=== PATIENT | female | born 1960 | race Two or more races ===

== ENCOUNTER 2022-09-29 09:02 | Inpatient (IN) | payer OTHER ==
[~2022-09-29] VITALS: Ht 167.6 cm; Wt 81.5 kg
[2022-09-29] MEDS ORDERED: SODIUM CHLORIDE 0.9% 1,000 ML IV ONE (09:30)
[2022-09-29 09:57] LABS: Albumin 3.6 g/dL (3.4-5.0); Calcium 8.7 mg/dL (8.5-10.1); Potassium 3.4 mmol/L (3.5-5.1)
[2022-09-29 10:00] LABS: BUN/Creatinine Ratio 17.9 (10.0-20.0); Bilirubin, Total 0.4 mg/dL (0.2-1.0); Total Protein 6.9 g/dL (6.4-8.2)
[2022-09-29 10:25] LABS: Basophils # (auto) 0 10 ^3/uL (0-0.2); Basophils % (auto) 0.8 % (0.0-2.0); Eosinophils # (auto) 0.2 10 ^3/uL (0-0.8); Eosinophils % (auto) 3.1 % (0.0-7.0); Lymphocytes # (auto) 0.8 10 ^3/uL (0.4-5.4); Lymphocytes % (auto) 12.5 % (10.0-50.0); Mean Corpuscular Hemoglobin 30.9 pg (28.0-32.0); Mean Corpuscular Hgb Conc. 33.4 g/dL (32.0-36.0); Mean Corpuscular Volume 92.6 fL (80.0-100.0); Monocytes # (auto) 0.6 10 ^3/uL (0-1.3); Monocytes % (auto) 9.7 % (0.0-12.0); Neutrophils # (auto) 4.5 10 ^3/uL (1.6-8.6); Neutrophils % (auto) 73.9 % (37.0-80.0); Nucleated Red Blood Cells % 0.1 %; Red Cell Distribution Width 14.4 % (11.8-14.3); White Blood Cell 6.1 10^3/uL (4.4-10.8)
[2022-09-29 11:00] VITALS: PULSE 75; RESP 15; O2SAT 99
[2022-09-29] MEDS ORDERED: POTASSIUM EFFERVESENT TAB 25 MEQ PO ONE (11:00)
[2022-09-29 11:10] LABS: Hematocrit 35.2 % (36.0-46.0); Hemoglobin 11.7 g/dL (12.2-16.2)
[2022-09-29 12:57] LABS: Urine Bacteria NONE SEEN /hpf (None Seen); Urine Blood Negative /uL (Negative); Urine Clarity Clear (Clear); Urine Color Yellow (Yellow); Urine Protein, UAD Negative (Negative); Urine Specific Gravity 1.016 (1.001-1.035); Urine Urobilinogen Normal (Negative); Urine WBC <1 /hpf (0 - 5); Urine pH 6.5 (5.0-8.0)
[2022-09-29] MEDS ORDERED: ACETAMINOPHEN 325 MG TAB PO PRN (15:45)
[2022-09-29] MEDS ORDERED: NITROGLYCERIN 0.4 MG SL TAB SL PRN (15:45)
[2022-09-29] MEDS ORDERED: ONDANSETRON HCL 4 MG/2 ML VIAL IV PRN (15:45)
[2022-09-29] MEDS ORDERED: MORPHINE SULFATE INJ 2 MG/ml SYRG IV PRN ×2 (15:45)
[2022-09-29] MEDS: SODIUM CHLORIDE 0.9% 1,000 ML IV SCH (16:46)
[2022-09-29 19:30] VITALS: PULSE 69; RESP 20; O2SAT 94
[2022-09-29] MEDS: hydrALAZINE HCL 20 MG/ML VL IV PRN (23:32)
[2022-09-30] MEDS: hydrALAZINE HCL 20 MG/ML VL IV PRN (07:30)
[2022-09-30] MEDS: SODIUM CHLORIDE 0.9% 1,000 ML IV SCH (08:35)
[2022-09-30 08:57] VITALS: PULSE 60; RESP 18; O2SAT 95
[2022-09-30] MEDS: ENOXAPARIN SOD 40 MG/0.4 ML SYRINGE SC SCH (10:32)
[2022-09-30 19:30] VITALS: PULSE 69; RESP 13; O2SAT 96
[2022-09-30] MEDS: clonazePAM 0.5 MG TAB PO SCH (22:44)
[2022-10-01] MEDS: SODIUM CHLORIDE 0.9% 1,000 ML IV SCH ×2 (02:57→17:45)
[2022-10-01 07:30] VITALS: PULSE 68; RESP 12; O2SAT 98
[2022-10-01] MEDS: HYDROcodone-ACET 5/325MG TAB PO PRN ×2 (08:05→16:34)
[2022-10-01 09:34] VITALS: BP 155/83; PULSE 66; RESP 16; TEMP 98.4; O2SAT 98
[2022-10-01] MEDS: ENOXAPARIN SOD 40 MG/0.4 ML SYRINGE SC SCH (10:00)
[2022-10-01 13:00] VITALS: BP 153/63; PULSE 67; RESP 18; TEMP 98.4; O2SAT 100
[2022-10-01 17:00] VITALS: BP 170/62; PULSE 71; RESP 20; TEMP 98.3; O2SAT 100
[2022-10-01] MEDS: hydrALAZINE HCL 20 MG/ML VL IV PRN (17:10)
[2022-10-01] MEDS ORDERED: HYDR25TA4 PO (17:49)
[2022-10-01] MEDS ORDERED: BUPR4MIS SL (17:49)
[2022-10-01] MEDS ORDERED: CLON-853 PO (17:49)
[2022-10-01] MEDS ORDERED: TIZA4TAB9 PO (17:49)
[2022-10-01] MEDS ORDERED: DULO60CA41 PO (17:49)
[2022-10-01] MEDS ORDERED: BUSP10TA90 PO (17:49)
[2022-10-01 20:00] VITALS: PULSE 75
[2022-10-01] MEDS: clonazePAM 0.5 MG TAB PO SCH (21:29)
[2022-10-01 22:00] VITALS: BP 150/76; PULSE 85; RESP 17; TEMP 98.2; O2SAT 96
[2022-10-02] MEDS: HYDROcodone-ACET 5/325MG TAB PO PRN (01:03)
[2022-10-02 05:00] VITALS: BP 135/69; PULSE 85; RESP 17; TEMP 98.2; O2SAT 97
[2022-10-02 08:15] VITALS: BP 139/48; PULSE 63; PULSE 69; RESP 18; TEMP 98.2
[2022-10-02 09:00] VITALS: BP 139/48; PULSE 69; RESP 18; TEMP 98.2; O2SAT 97
[2022-10-02] MEDS: ENOXAPARIN SOD 40 MG/0.4 ML SYRINGE SC SCH (09:14)
[2022-10-02] MEDS: SODIUM CHLORIDE 0.9% 1,000 ML IV SCH (10:25)
[2022-10-02 11:51] VITALS: BP 139/48; PULSE 69; RESP 18; TEMP 98.2; O2SAT 97
[2022-10-02] MEDS ORDERED: LEVO500T91 PO (12:35)
== END 2022-10-02 13:37 | disposition home health service (06) | DRG 71 ==
LOC: EDSEX 09:02 → EDBD 09:02 → ER 09:02 → TELE 15:43 → TELE-WESTW 10-01 09:04
PROVIDERS: ADMIT Internal Medicine; ATTEND Internal Medicine
DX: G93.41 Metabolic encephalopathy (principal); G91.0 Communicating hydrocephalus; R47.01 Aphasia; E11.9 Type 2 diabetes mellitus without complications; I10 Essential (primary) hypertension; Z88.0 Allergy status to penicillin; Z98.2 Presence of cerebrospinal fluid drainage device
CPT/HCPCS: 36415; 70450; 70551; 80053; 81001; 84484; 85025; 92610; 93005; 96374; 97110; 97116; 97163; 97530; 99291; G0378; J2405